=== PATIENT | female | born 1970 | race Caucasian/White ===

== ENCOUNTER 2023-10-20 10:26 | Emergency (ER) | payer OTHER, SELFPAY ==
[2023-10-20 10:48] VITALS: BP 166/99
[2023-10-20 11:03] LABS: % Basophils 0.4 % (0-2); % Eosinophils 1.3 % (0-6); % Immature Granulocytes 0.2 % (0-0.5); % Neutrophils 62.1 % (42.2-75.2); Absolute Eosinophils 0.1 10^3/uL (0-0.7); Absolute Lymphocytes 1.3 10^3/uL (1.2-3.4); Absolute Monocytes 0.4 10^3/uL (0.1-0.6); Absolute Neutrophils 2.9 10^3/uL (1.4-6.5); Hematocrit 39.9 % (37.0-47.0); Hemoglobin 13.9 g/dL (12.0-16.0); Mean Corp Hgb Conc. 34.8 g/dL (33.0-37.0); Mean Corpuscular Hgb 32.3 pg (27.0-31.0); Mean Corpuscular Volume 92.8 fL (81.0-99.0); Mean Platelet Volume 9.5 fL (7.4-10.4); Nucleated Red Blood Cells % 0 %; Platelet Count 199 10^3/uL (130-400); Red Cell Dist. Width 12.7 % (11.5-14.5); White Blood Cell Count 4.6 10^3/uL (4.8-10.8)
[2023-10-20 11:17] LABS: ALT (SGPT) 26 U/L (0-35); AST (SGOT) 27 U/L (14-36); Albumin 4.5 g/dl (3.5-5.0); Alkaline Phosphatase 64 U/L (38-126); Blood Urea Nitrogen 21 mg/dl (7-17); Calcium 9.4 mg/dl (8.4-10.2); Carbon Dioxide 25 mmol/L (22-30); Chloride 104 mmol/L (98-107); Glucose 114 mg/dl (70-99); Potassium 4.8 mmol/L (3.5-5.1); Sodium 134 mmol/L (135-145); Total Bilirubin 0.5 mg/dl (0.2-1.3); Total Protein 7.2 g/dl (6.3-8.2); eGFR > 60.00
[2023-10-20 11:28] LABS: Troponin I < 0.012 ng/ml
--- NOTE | 2023-10-20 11:59 | ED.GENMED ---
History of Present Illness
General
Chief Complaint: Chest Pain
Source: patient
Time Seen by Provider: 10/20/23 11:26
Travel History
Have you had any contact with someone who has COVID-19?: No
Do you have any symptoms of coronavirus? Fever > 100 degrees, chills, cough, shortness of breath, sore throat, loss of taste or smell, muscle aches, or headache?: No
History of Present Illness
History of Present Illness:
This patient is a 53-year-old female presents emergency department with complaints of chest discomfort that started approximately 9:45 AM today while sitting at a table doing taxes. The pain for started at the left side of the anterior chest and
then radiated to the center. There was no radiation to the back jaw head or elsewhere. The pain lasted about an hour and then gradually resolved such that she is left with a 'pressure' in the left chest area that she says is 'not a pain'. She
denies associated diaphoresis, dyspnea, nausea, vomiting, fever, chills, abdominal pain, headache, numbness, tingling, or other complaints. She denies a pleuritic component to the pain. Patient notes that she has been getting pain in her chest
that is very 'sharp' lasting seconds at a time, randomly occurring, for a long time. She also notes that her lips have been numb on and off for the last 2 weeks and this happened momentarily today but no longer present. Patient denies DVT risk
factors such as personal or family history, recent trauma, recent immobilization, leg swelling, smoking history, etc. She does state that her father suffered a heart attack.
Past History
Past History
ED Past Medical History: HTN and Other (Bronchitis, urticaria pigmentosa)
ED Past Surgical History: Gynecological (D&C)
Social History
Tobacco: Non-smoker
Alcohol: Occasional
Drug: None
Personal:
Living: with family
Employment: Not employed
Family History
Family History: Other (Non contributory)
Phy Exam
Physical Exam
Physical Exam:
GENERAL: Alert , in no apparent distress, extremely comfortable appearing
EYE: pupils equal and reactive
NECK: Supple, no significant adenopathy.
ENT: o/p clr, mmm.
CARDIAC: Regular rate and rhythm .
LUNGS: Clear breath sounds bilaterally, no acute respiratory distress, no wheezes/rales/rhonchi
ABDOMEN: Soft, without focal tenderness, no r/g, no cvat
NEUROLOGICAL: Alert and oriented, no focal neuro deficits
SKIN: Warm and dry, skin intact.
MUSCULOSKELETAL: No edema, well perfused.
PSYCH: Normal and appropriate interaction.
Scores
Heart Score for Chest Pain Patients
STEMI patient?: No
History: Slightly or Non-Suspicious
ECG: Normal
Age: >45 - <65 years
Risk Factors: 1 or 2 Risk Factors
Troponin: </= Normal Limit
Heart Score for Chest Pain Patients: 2
Heart Score Risk: 2.5% MACE over next 6 weeks
Course
Orders/Labs/Results
Orders:
Orders
10/20/23 10:27
EKG [Electrocardiogram (*1)] Urgent
Reason for Study: Chest Pain
EKG- Treatment ONCE
10/20/23 10:55
CMP [Comprehensive Metabolic Panel] Urgent
Complete Blood Count/With Diff Urgent
Troponin I Urgent
10/20/23 11:59
CR Chest - 2 Views Urgent
Comment:
Reason For Exam: cp
10/20/23 14:07
Troponin I Urgent
Abnormal Lab Results
10/20/23
10:55
WBC 4.6 L 10^3/uL
(4.8-10.8)
MCH 32.3 H pg
(27.0-31.0)
Sodium 134 L mmol/L
(135-145)
BUN 21 H mg/dl
(7-17)
Glucose 114 H mg/dl
(70-99)
10/20/23 10:55
10/20/23 10:55
Vital Signs
Initial and Last Documented VS:
Initial Vital Signs
Temp Pulse Resp BP Pulse Ox
98.3 F 86 18 166/99 98
10/20/23 10:48 10/20/23 10:48 10/20/23 10:48 10/20/23 10:48 10/20/23 10:48
Last Documented Vital Signs
Temp Pulse Resp BP Pulse Ox
98.3 F 77 17 137/93 98
10/20/23 10:48 10/20/23 13:00 10/20/23 13:00 10/20/23 13:00 10/20/23 13:08
*Critical Care Note
Total Time (30-74mins, 75-104mins- exclusive of procedures): Not Applicable
Update Note
Update Note:
Patient presents to the Emergency Department with ____chest pain
Number and Complexity of Problems Addressed at the Encounter
� Chronic conditions affecting care:
� Acute Exacerbation and/or Progression of Chronic Illness:
� Differential Diagnosis includes: But not limited to ACS, pericarditis, pneumothorax, pneumonia, PE, muscular pain, etc.
Amount and/or Complexity of Data to be Reviewed and Analyzed
� I performed an independent evaluation of and my interpretation is:
EKG: Read by me, normal sinus rhythm, normal rate, normal axis EMEA noted
CT:
Xrays:READ BY YOUNG POLLACK
Laboratory Studies:unremarkable
Other:
� Review of other/old records reveals:
� Clinical information was obtained by an independent historian:
� Prescriptions/Medications Considered but not given:
� Further testing considered but not performed:
Risk of Complications and/or Morbidity or Mortality of Patient Management
� Social determinants of health affecting care:
� Discussion with other providers (PCP, Hospitalists, Consultants, etc):
� Escalation of care including admission/observation vs risk of discharge considered:ECG unremkarable times two. Highly doubt acs given ecg, hx, labs. Highly doubt pe, dissection, etc given hx and phy (not 'ripping' or 'teaing',
no back pain, not pleuritic, etc. D/w pt import of f/u and raesons to rted.
ED Attending Note
-
Portions of this chart may have been created with voice recognition software.� Occasional wrong word or��sound alike� substitutions may have occurred due to the inherent limitations of voice recognition software.
Discharge Plan
Departure
Patient Disposition: Home (Routine Discharge)
Date of Disposition: 10/20/23
Time of Disposition: 15:13
Patient with high blood pressure during this ER visit?: Yes
Condition: Good
Discharge Problem:
Chest pain
Instructions: Chest Pain PCP Follow Up, BLOOD PRESSURE
Prescriptions:
No Action
No Current Medications
0
Referrals:
Espinoza Rodriguez MD [Active] - Next open appointment
PRIVATE,PHYSICIAN [Family Provider] -
Activity Restrictions/Additional Instructions:
IF YOU DEVELOP INCREASING/NEW/PERSISTENT PAIN, ANY TROUBLE BREATHING, FEVER, VOMITING, DIZZINESS, OR OTHER WORRISOME SIGNS, GO TO THE ER IMMEDIATELY!
Interventions
Interventions:
*Risk Screen - Suicide Last Done: 10/20/23 12:43
*General Assessment Last Done: 10/20/23 12:37
*Neglect/Abuse Screening Last Done: 10/20/23 12:43
*ED COVID-19 Vaccine History Last Done: 10/20/23 12:37
ED- Cardiac Assessment Last Done: 10/20/23 13:08
Discharge Date and Time
Print Language: GERMAN
[2023-10-20 12:37] VITALS: BMI 33.4
[2023-10-20 12:46] VITALS: BP 137/87
[2023-10-20 13:00] VITALS: BP 137/93
[2023-10-20 14:00] VITALS: BP 144/96
[2023-10-20 14:41] LABS: Troponin I < 0.012 ng/ml
[2023-10-20 15:31] VITALS: BP 147/90
== END 2023-10-20 15:42 | disposition home or self-care (01) ==
LOC: EMR 10:26
PROVIDERS: Emergency Medicine; EMERGENCY PHYSICIAN Emergency Medicine
DX: R07.89 Other chest pain (principal); R20.0 Anesthesia of skin; I10 Essential (primary) hypertension; Z82.49 Family history of ischemic heart disease and other diseases of the circulatory system
CPT/HCPCS: 99285; 71046; 80053; 84484; 85025; 93005